=== PATIENT | female | born 1990 | race Caucasian/White ===

== ENCOUNTER 2021-02-09 22:12 | Emergency (ER) | payer MEDICAID ==
--- NOTE | 2021-02-09 22:34 | EDM.PDOC ---
ED HPI GENERAL MEDICAL PROBLEM - General Stated Complaint: POSSIBLE UTI Time Seen by Provider: 02/09/21 22:29 Source of Information: Reports: Patient History Limitations: Reports: No Limitations - History of Present Illness INITIAL COMMENTS - FREE TEXT/NARRATIVE: Patient presents to the ED for concerns for UTI. She is a SAB1 with a set of twins and currently 26 weeks . SHe has had care with a normal intra uterine , She started to notice lower abdominal pain with dysuria yesterday. No fevers or chills, has been more tired. No cough or shortness of breath. Had a UTI earlier in the . NO STD concerns. Has an ob to follow up with. Onset Date: 02/08/21 Bladder Pain Score (Numeric/FACES): 5 - Related Data Allergies Allergy/AdvReac Type Severity Reaction Status Date / Time No Known Allergies Allergy Verified 02/09/21 23:48 Home Meds: Home Meds cephALEXin [Keflex] 500 mg PO Q8H 5 Days #15 cap 02/09/21 [Rx] Past Medical History Respiratory History: Reports: Asthma - Past Surgical History Female Surgical History: Reports: Section Social & Family History - Tobacco Use Tobacco Use Status *Q: Current Every Day Tobacco User - Alcohol Use Alcohol Use History: No Alcohol Use in Last Twelve Months: No - Recreational Drug Use Recreational Drug Use: No Drug Use in Last 12 Months: No ED ROS GENERAL - Review of Systems Review Of Systems: See Below Constitutional: Reports: Malaise, Weakness, Fatigue. Denies: Fever, Chills HEENT: Reports: No Symptoms Respiratory: Reports: No Symptoms Cardiovascular: Reports: No Symptoms Endocrine: Reports: No Symptoms : Reports: Dysuria, Frequency Musculoskeletal: Reports: No Symptoms Skin: Reports: No Symptoms Neurological: Reports: No Symptoms ED EXAM, RENAL/ - Physical Exam Exam: See Below Exam Limited By: No Limitations General Appearance: Alert, WD/WN, No Apparent Distress Ears: Normal External Exam Nose: Normal Inspection, Normal Mucosa, Other (mild dry mucous membranes) Head: Atraumatic Neck: Normal Inspection Respiratory/Chest: No Respiratory Distress, Lungs Clear Cardiovascular: Normal Peripheral Pulses, Regular Rate, Rhythm, No Murmur GI/Abdominal: Normal Bowel Sounds, Soft, Other (gravid uterus consistent with dates with fundus above the umbilicus. good movement with palpation of the gravid uterus. ) Extremities: Normal Inspection, Normal Range of Motion Neurological: Alert, Oriented, CN II-XII Intact Course - Vital Signs Last Recorded V/S: Last Vital Signs Temp 37.3 C 02/09/21 22:20 Pulse 90 02/09/21 22:20 Resp 18 02/09/21 22:20 BP 124/64 02/09/21 22:20 Pulse Ox 98 02/09/21 22:20 - Orders/Labs/Meds Orders: Active Orders 24 hr Category Date Time Status CULTURE URINE [RM] Stat Lab 02/09/21 22:24 Received Labs: Laboratory Tests 02/09/21 Range/Units 22:24 Urine Color Yellow (YELLOW) Urine Appearance Cloudy H (CLEAR) Urine pH 7.0 (5.0-8.0) Ur Specific [place] 1.025 Urine Protein Negative (NEGATIVE) mg/dL Urine Glucose (UA) Negative (NEGATIVE) mg/dL Urine Ketones Negative (NEGATIVE) mg/dL Urine Occult Blood Trace-intact H (NEGATIVE) Urine Nitrite Negative (NEGATIVE) Urine Bilirubin Negative (NEGATIVE) Urine Urobilinogen 0.2 (0.2) EU/dL Ur Leukocyte Esterase Moderate H (NEGATIVE) Urine RBC 5-10 H (NOT SEEN) /HPF Urine WBC 75-100 H (NOT SEEN) /HPF Ur Squamous Epith Cells Few H (NOT SEEN) /HPF Urine Bacteria Few H (NOT SEEN) /HPF Urine Mucus Rare H (NOT SEEN) /LPF Meds: Medications Discontinued Medications Generic Name Dose Route Start Last Admin Trade Name Freq PRN Reason Stop Dose Admin Cephalexin 500 mg 02/09/21 23:05 02/09/21 23:02 Cephalexin 500 Mg Cap PO 02/09/21 23:06 500 mg ONETIME ONE Administration - Re-Assessments/Exams Free Text/Narrative Re-Assessment/Exam: 02/09/21 22:34 will check a urine 02/09/21 23:05 has uti, will give keflex and follow with a culture. Follow with OB> advised to go to [place] for increased pelvic discomfort for OB evalaution due to gestational age. Departure - Departure Time of Disposition: 23:06 Disposition: Home, Self-Care 01 Condition: Good Clinical Impression: UTI (urinary tract infection) - Discharge Information *PRESCRIPTION DRUG MONITORING PROGRAM REVIEWED*: Not Applicable *COPY OF PRESCRIPTION DRUG MONITORING REPORT IN PATIENT MELIA: Not Applicable Prescriptions: cephALEXin [Keflex] 500 mg PO Q8H 5 Days #15 cap Instructions: and Urinary Tract Infection Referrals: Robin Soni NP [Primary Care Provider] - Forms: ED Department Discharge Additional Instructions: take the antibiotic until gone. Follow up with OB next week or sooner if pelvic cramping continues. Increased fluids. You will be notified if antibiotic changes need to be done based on urine culture' Sepsis Event Note (ED) - Focused Exam Vital Signs: Vital Signs Temp Pulse Resp BP Pulse Ox 02/09/21 22:20 37.3 C 90 18 124/64 98 - My Orders Last 24 Hours: My Active Orders 02/09/21 22:24 CULTURE URINE [RM] Stat - Assessment/Plan Last 24 Hours: My Active Orders 02/09/21 22:24 CULTURE URINE [RM] Stat
[2021-02-09] MEDS ORDERED: Cephalexin 500 MG Cap PO ONE (23:05)
== END 2021-02-09 23:13 | disposition home or self-care (01) ==
LOC: VM.ED 22:12
DX: O23.42 Unspecified infection of urinary tract in pregnancy, second trimester (principal); N39.0 Urinary tract infection, site not specified; Z3A.26 26 weeks gestation of pregnancy; Z72.0 Tobacco use
CPT/HCPCS: 81001; 87086; 87088; 87186; 99284; A9270